=== PATIENT | female | born 1995 | race African-American/Black ===

== ENCOUNTER 2017-08-28 22:49 | Inpatient (IN) | payer OTHER ==
[~2017-08-28] VITALS: Ht 175.3 cm; Wt 73.5 kg
[~2017-08-28 22:49] MED LIST: ORPH100T PO; SYNTHROID75 MCG
[2017-08-29] MEDS ORDERED: PRENATAL TABLE1 EAC1 PO (02:08)
[2017-08-29] MEDS ORDERED: SYNTHROID50 MCG PO (02:08)
== END 2017-08-30 15:09 | disposition home or self-care (01) | DRG 778 ==
LOC: OBS/DEL 22:49 → LDR 08-29 01:06 → OBS/DEL 08-29 01:06 → LDR 08-30 15:09
PROC: 4A1HXCZ Monitoring of Products of Conception, Cardiac Rate, External Approach (ICD-10-PCS; principal; 2017-08-29)
DX: O60.03 Preterm labor without delivery, third trimester (principal); Z3A.35 35 weeks gestation of pregnancy

== ENCOUNTER 2017-09-06 19:26 | Inpatient (IN) | payer OTHER ==
[~2017-09-06] VITALS: Ht 175.3 cm; Wt 2.3 kg
[~2017-09-06 19:26] MED LIST changes: +PRENATAL TABLE1 EAC1 PO; +SYNTHROID50 MCG PO
== END 2017-09-12 16:57 | DRG 766 ==
LOC: LDR 19:26 → O/R 09-09 15:58 → OB/GYN 09-09 17:49
PROVIDERS: Obstetrics & Gynecology Obstetrics
PROC: 3E0P7VZ Introduction of Hormone into Female Reproductive, Via Natural or Artificial Opening (ICD-10-PCS; 2016-09-08)
PROC: 4A1HXCZ Monitoring of Products of Conception, Cardiac Rate, External Approach (ICD-10-PCS; 2017-09-06)
PROC: 10D00Z1 Extraction of Products of Conception, Low, Open Approach (ICD-10-PCS; principal; 2017-09-09 15:00)
DX: O14.14 Severe pre-eclampsia complicating childbirth (principal); Z3A.37 37 weeks gestation of pregnancy; Z37.0 Single live birth

== ENCOUNTER 2018-09-10 01:33 | Emergency (ER) | payer OTHER ==
[~2018-09-10] VITALS: Ht 175.3 cm; Wt 67.1 kg
== END 2018-09-10 12:05 | disposition home or self-care (01) ==
LOC: EMR PED 01:33 → ER 01:33 → EMR PED 02:08 → ER 02:08
DX: K52.9 Noninfective gastroenteritis and colitis, unspecified (principal)